=== PATIENT | male | born 1985 | race Caucasian/White ===

== ENCOUNTER 2019-01-18 02:16 | Emergency (ER) | payer SELFPAY ==
[~2019-01-18] VITALS: Ht 177.8 cm; Wt 72.7 kg
[2019-01-18 02:20] VITALS: TEMP 97.6
[2019-01-18 02:55] LABS: BASO # 0.1 (0.0-0.2); BASO % 0.7 % (0.0-2.0); EOS # 0.5 (0.0-0.7); EOS % 6.7 % (0-4.0); GRAN # 3.5 (1.4-6.5); GRAN % 42.8 % (42.2-75.2); HEMATOCRIT 42.5 % (42.0-52.0); HEMOGLOBIN 14.8 g/dl (13.5-18.0); LYMPH # 3.5 (1.2-3.4); MEAN CELL VOLUME 89 fl (80.0-100.0); MEAN CORPUSCULAR HEMOGLOBIN 31 pg (27.0-31.0); MEAN CORPUSCULAR HGB CONC 35 g/dl (33.0-37.0); MEAN PLATELET VOLUME 10.4 fl (7.4-10.4); MONO # 0.5 (0.1-0.6); MONO % 6.6 % (1.7-9.3); PLATELET COUNT 197 K/mm3 (130-400); RED BLOOD COUNT 4.78 M/mm3 (4.20-5.60); REDCELL DISTRIBUTION WIDTH-CV 12.4 % (11.5-14.5)
[2019-01-18 03:08] LABS: ALBUMIN 4.6 gm/dL (3.5-5.0); BILIRUBIN,TOTAL 0.2 mg/dL (0.0-1.0); CALCIUM 9.1 mg/dL (8.4-10.2); CREATININE, serum 0.91 (0.66-1.25); POTASSIUM 3.7 mmol/L (3.4-5.0); TOTAL PROTEIN 7.6 gm/dL (6.4-8.2)
[2019-01-18 07:10] VITALS: BP 119/76; PULSE 77
== END 2019-01-18 07:10 | disposition home or self-care (01) ==
LOC: COL.ER 02:16 → EDSEX 02:16 → COL.ER 07:10
PROVIDERS: Emergency Medicine
DX: S01.01XA Laceration without foreign body of scalp, initial encounter (principal); Z23 Encounter for immunization; F10.129 Alcohol abuse with intoxication, unspecified; V43.52XA Car driver injured in collision with other type car in traffic accident, initial encounter; Y90.8 Blood alcohol level of 240 mg/100 ml or more
CPT/HCPCS: Q9967

== ENCOUNTER 2019-01-31 13:39 | Emergency (ER) | payer SELFPAY ==
[2019-01-31 13:55] VITALS: BP 126/74; PULSE 61; TEMP 99.2
== END 2019-01-31 14:04 | disposition home or self-care (01) ==
LOC: COL.ER 13:39
DX: S01.01XD Laceration without foreign body of scalp, subsequent encounter (principal); X58.XXXD Exposure to other specified factors, subsequent encounter